=== PATIENT | male | born 1985 | race Caucasian/White ===

== ENCOUNTER 2020-01-06 10:20 | Emergency (ER) | payer OTHER, SELFPAY ==
[2020-01-06 10:29] VITALS: BP 134/88; PULSE 90; RESP 18; TEMP 36.4; O2SAT 97; BMI 32.1
--- NOTE | 2020-01-06 11:23 | XR_ITS ---
WS: [id number] EXAM: AP CHEST: PORTABLE UPRIGHT DATE OF EXAM: 01/06/2020, 1139 hours COMPARISON: NONE HISTORY: Patient is 34 years old with shortness of breath. FINDINGS: The cardiac silhouette is normal in size. The mediastinal contours are normal. The pulmonary vas cularity is normal. The lungs are clear of infiltrate. There is no effusion or pneumothorax. No ac [place] bony abnormality is seen. XR/XR chest 1V portable [id number] IMPRESSION: No acute pulmonary disease.
--- NOTE | 2020-01-06 11:44 | ED_ITS ---
HPI - Fever General: Chief Complaint: Fever Stated Complaint: covid symptoms w/ exposure Time Seen by Provider: 01/06/20 10:37 Source: patient Mode of arrival: ambulatory Limitations: no limitations History of Present Illness: HPI Narrative: 34-year-old male who states he has had a cough along with body aches and subjective fevers at home. States is been going on since Tuesday. He states he has a coworker that tested positive for COVID and he wants to be tested. Patient currently has no shortness of breath. Denies any worsening improving factors. He has had no vomiting. Associated symptoms: Deny abdominal pain, chest pain, diarrhea, dysuria, headache(s), nausea or vomiting Review of Systems Const: Reports: fever(s) and body aches Eyes: Denies: blurry vision or eye discomfort ENMT: Denies: throat pain or dental pain Card: Denies: chest pain Resp: Reports: non-productive cough GI: Denies: abdominal pain, nausea, vomiting or diarrhea : Denies: dysuria Musc: Denies: neck pain or back pain Skin/Breast: Denies: rash Neuro: Denies: headache(s) Psych: Denies: depression Michael/Lymph: Denies: easy bruising All/Imm: Denies: urticaria Physical Exam Const: COMMON NORMALS: no acute distress, patient oriented x3 and healthy appearing HENMT: COMMON NORMALS: normocephalic and atraumatic HEAD & SCALP: normocephalic and atraumatic Eye: COMMON NORMALS: Equal, round and reactive pupils present and EOMs intact bilaterally PUPIL: Yes Equal, round and reactive pupils present Neck/C-Spine: COMMON NORMALS: full ROM and supple Chest: COMMONS NORMALS: normal inspection of the chest and normal palpation of entire chest wall Resp: COMMON NORMALS: normal respiratory effort, No retractions, No use of accessory muscles and clear to auscultation bilaterally AUSCULTATION: clear to auscultation bilaterally Cardio: COMMON NORMALS: regular rate, regular rhythm and No murmurs present (Cardio) RATE: regular rate RHYTHM: regular rhythm GI: COMMON NORMALS: Normal to inspection, nondistended, normoactive bowel sounds present, Soft to palpation, non-tender and no masses PALPATION: Yes Soft to palpation Extremity: COMMON NORMALS: normal to inspection and full ROM Neuro: COMMON NORMALS: patient oriented x3, moves all extremities and no focal motor deficits Psych: COMMON NORMALS: mental status grossly normal, Normal thought process present and cooperative THOUGHT PROCESS: Normal thought process present Skin: COMMON NORMALS: no rashes or lesions noted and no wounds GENERAL SKIN EXAM: no rashes or lesions noted Course Vital Signs: Vital signs: Vital Signs Temperature 97.6 F 01/06/20 10:29 Pulse Rate 90 01/06/20 10:29 Respiratory Rate 18 01/06/20 10:29 Blood Pressure 134/88 01/06/20 10:29 Pulse Oximetry 97 01/06/20 10:29 MDM - Fever MDM Narrative: Medical decision making narrative: Patient presents here with fever likely upper respiratory infection. Will test for COVID-19 informed him test come back in 1 to 2 days. He is to self quarantine until then. Patient is in no distress here and is well-appearing and is stable for discharge. He is return if worsening. Imaging Data^: CXR: Attestation: I personally reviewed and interpreted this imaging study as follows: My impression: No acute abnormality Discharge Plan Discharge Patient Disposition: Home Clinical Impression: Viral infection Condition: Stable Prescriptions: New ondansetron 4 mg tablet,disintegrating 4 mg PO Q6H PRN (Reason: nausea and vomiting) Qty: 14 RF: 0 Discharge Orders: Discharge Order (Routine); Ordered 01/06/20 Ordered By: Marce Kate Discharge Diet: Advance as tolerated Discharge Activity: Resume usual activity Patient Instructions: Upper Respiratory Infection (ED) Coding Level of Care Code ED 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
[2020-01-06 12:11] VITALS: BP 134/78; PULSE 87; RESP 18; O2SAT 98
[2020-01-07 15:17] LABS: Coronavirus Lab Test PTC Negative
--- NOTE | 2020-01-08 10:10 | PC.NURSE ---
attempted to contact pt via phone. The only number we have is not his number. We will mail out a letter.
== END 2020-01-06 12:12 | disposition home or self-care (01) ==
PROVIDERS: Emergency Provider Emergency Medicine
DX: B34.9 Viral infection, unspecified (principal)
CPT/HCPCS: 12345; 71045; 87635; 99281; 99283